=== PATIENT | male | born 1970 | race African-American/Black ===

== ENCOUNTER 2016-11-06 11:54 | Inpatient (IN) | payer OTHER ==
[~2016-11-06] VITALS: Ht 190.5 cm; Wt 93.0 kg
[2016-11-06 11:55] VITALS: BP 129/86; PULSE 92; RESP 17; TEMP 98.1; O2SAT 92
[2016-11-06 12:00] VITALS: BP 130/96; PULSE 98; RESP 16; TEMP 98; O2SAT 94
[2016-11-06] MEDS ORDERED: PROPOFOL 200 MG/20 ML AMP IV ONE (12:00)
[2016-11-06] MEDS ORDERED: ONDANSETRON HCL 4 MG/2 ML VIAL IV PUSH ONE (12:00)
[2016-11-06 12:15] VITALS: O2SAT 97
[2016-11-06] MEDS ORDERED: MORPHINE SULFATE 4 MG/ML INJ IV PUSH ONE (12:30)
[2016-11-06] MEDS ORDERED: SODIUM CHLORIDE 0.9% FLUSH 5 ML FLUSH IVF PRN (12:30)
[2016-11-06] MEDS ORDERED: GENTAMICIN 80 MG PREMIX 100 ML IV ONE (12:30)
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
[2016-11-06 12:36] LABS: AUTOMATED NEUTROPHIL # 4.5 TH/MM3 (1.8-7.7); BASOPHIL % 0.2 % (0.0-2.0); EOSINOPHIL # 0.1 TH/MM3 (0-0.4); EOSINOPHIL % 1.8 % (0.0-4.0); HEMATOCRIT 46.1 % (39.0-51.0); HEMO FLAGS DIFF FINAL; LYMPH % 23.3 % (9.0-44.0); LYMPHOCYTE # 1.8 TH/MM3 (1.0-4.8); MEAN CELL VOLUME 94.4 FL (80.0-100.0); MEAN CORPUSCULAR HEMOGLOBIN 31.7 PG (27.0-34.0); MEAN CORPUSCULAR HGB CONC 33.6 % (32.0-36.0); MONO % 15.8 % (0.0-8.0); NEUT % 58.9 % (16.0-70.0); PLATELET COUNT 262 TH/MM3 (150-450); RED BLOOD COUNT 4.88 MIL/MM3 (4.50-5.90); RED CELL DISTRIBUTION WIDTH 13.9 % (11.6-17.2); WHITE BLOOD COUNT 7.6 TH/MM3 (4.0-11.0)
[2016-11-06] MEDS ORDERED: TEMAZEPAM 15 MG CAP PO PRN (12:45)
[2016-11-06] MEDS ORDERED: ONDANSETRON HCL 4 MG/2 ML VIAL IVP PRN (12:45)
[2016-11-06] MEDS ORDERED: NALOXONE HCL 0.4 MG/ML AMP IV PRN (12:45)
[2016-11-06] MEDS ORDERED: SODIUM CHLORIDE 0.9% FLUSH 5 ML FLUSH FLUSH PRN (12:45)
[2016-11-06 12:47] LABS: APTT (PATIENT) 28.6 SEC (24.3-30.1); INTERNATIONAL NORMALIZED RATIO 0.9 RATIO; PROTHROMBIN TIME - PATIENT 9.8 SEC (9.8-11.6)
[2016-11-06 12:56] LABS: BICARBONATE 26.6 MEQ/L (21.0-32.0)
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
--- NOTE | 2016-11-06 13:08 | RADRPT ---
EXAM DATE/TIME: 11/06/2016 12:52 [facility] COMPARISON: No previous studies available for comparison. INDICATIONS : Left Hand pain after getting hit with chainsaw, wound is on back of hand in the 2nd-4th digit metacar pal area. MEDICAL HISTORY : Left Wrist Fractures. SURGICAL HISTORY : None. ENCOUNTER: Initial ACUITY: 1 day PAIN SCORE: 10/10 LOCATION: Left Hand. FINDINGS: Three view examination of the left hand demonstrates no soft tissue swelling, dislocation, or fractur e. The carpal bones appear intact. The interphalangeal and metacarpophalangeal joints are intact. Bony mineralization is normal. CONCLUSION: Unremarkable examination of the left hand. Soft tissue wound dorsally but no foreign body identified Lorenzo Sena MD on November 06, 2016 at 13:06 Board Certified Radiologist. This report was verified electronically.
--- NOTE | 2016-11-06 13:12 | RADRPT ---
EXAM DATE/TIME: 11/06/2016 12:54 [facility] COMPARISON: WRIST LEFT COMPLETE ([id number]), September 04, 2013, 23:12. INDICATIONS : Left Wrist pain after getting hit with chainsaw, wound is on back of hand in the 2nd-4th digit metaca rpal area. MEDICAL HISTORY : Left Wrist Fractures. SURGICAL HISTORY : None. ENCOUNTER: Initial ACUITY: 1 day PAIN SCORE: 10/10 LOCATION: Left Wrist. FINDINGS: Three view examination of the left wrist demonstrates no soft tissue swelling, dislocation, or fractu re. The carpal bones are in normal alignment. The joint spaces are maintained. Bony mineralization is normal. CONCLUSION: Unremarkable examination of the left wrist. Lorenzo Sena MD on November 06, 2016 at 13:11 Board Certified Radiologist. This report was verified electronically.
[2016-11-06] MEDS ORDERED: TETANUS/DIPHTHERIA TOXOID ADULT 0.5 ML VIAL IM ONE (13:15)
[2016-11-06] MEDS: SODIUM CHLOR 0.45% 1000 ML INJ 1,000 ML IV SCH ×2 (14:08→23:35)
[2016-11-06] MEDS: MORPHINE SULFATE 4 MG/ML INJ IV PUSH PRN ×2 (14:39→20:03)
[2016-11-06 14:50] VITALS: BP 158/98; PULSE 97; RESP 17; TEMP 98.6; O2SAT 96
[2016-11-06] MEDS ORDERED: ceFAZolin INJ 1,000 MG VIAL ONE (16:19)
[2016-11-06] MEDS ORDERED: LIDOCAINE HCL 2% 50 ML VIAL ONE (16:19)
[2016-11-06] MEDS ORDERED: BUPIVACAINE HCL PF 0.5% 30 ML VIAL ONE (16:19)
[2016-11-06] MEDS ORDERED: NEOMYCIN/POLYMYXIN 1 ML G.U. IRRIGANT IR ONE ×2 (16:26→16:31)
--- NOTE | 2016-11-06 17:34 | HHI.HP ---
[facility] Service [facility] Primary Care Physician No Primary Care Physician Admission Diagnosis complicated left hand laceration, chainsaw injury Diagnoses: Chief Complaint: Severe left hand trauma from a chainsaw Travel History International Travel<30 Days: No Contact w/Intl Traveler <30 Da: No Traveled to Known Affected Are: No History of Present Illness Patient seen around 1300 46-year-old male with no significant medical history except for asthma presented to the emergency room after he sustained an injury on his left hand from a chainsaw. The patient reports that he was working and his coworker was using the chainsaw. As the coworker turned around, they did not see each other until the chainsaw hit his left hand on the dorsal side. He immediately noticed significant blood in the deep wound. Hand surgeon was consulted in the emergency room. Patient will be taken to the OR today. Currently he reports that he is having significant pain. He cannot extend the index finger. Otherwise all of the fingers have good color and sensation is intact. Morphine that he received earlier is wearing off. Date of last tetanus shot is unknown. Review of Systems Constitutional: DENIES: Fever, Chills Endocrine: DENIES: Polyuria Eyes: DENIES: Blurred vision Ears, nose, mouth, throat: DENIES: Oral lesions, Hoarseness Respiratory: DENIES: Cough, Shortness of breath Cardiovascular: DENIES: Chest pain, Palpitations Gastrointestinal: DENIES: Nausea, Vomiting Musculoskeletal: COMPLAINS OF: Joint pain Neurologic: COMPLAINS OF: Localized weakness Psychiatric: DENIES: Mood changes Past Family Social History Past Medical History Asthma. Past Surgical History No previous surgery. Multiple previous broken bones treated conservatively Reported Medications Last Impressions Wrist X-Ray 11/06/16 0000 Signed Impressions: Service Date/Time: Sunday, November 06, 2016 12:54 - CONCLUSION: Unremarkable examination of the left wrist. Lorenzo Sena MD Hand X-Ray 11/06/16 0000 Signed Impressions: Service Date/Time: Sunday, November 06, 2016 12:52 - CONCLUSION: Unremarkable examination of the left hand. Soft tissue wound dorsally but no foreign body identified Lorenzo Sena MD Chest X-Ray 11/06/16 0000 Signed Impressions: Service Date/Time: Sunday, November 06, 2016 12:49 - CONCLUSION: Normal examination. Lorenzo Sena MD Allergies: Coded Allergies: Shrimp (Verified Allergy, Severe, 11/06/16) swelling Family History Both parents with history of hypertension. Social History Patient admits to smoking a quarter pack of cigarettes per day. He drinks about 4 beers daily. He admits to using cocaine yesterday. Physical Exam Vital Signs Vital Signs Date Time Temp Pulse Resp B/P Pulse Ox O2 Delivery O2 Flow Rate FiO2 11/06/16 14:50 98.6 97 17 158/98 96 Nasal Cannula 2 11/06/16 12:15 97 Room Air 11/06/16 12:00 98.0 98 16 130/96 94 11/06/16 11:55 98.1 92 17 129/86 92 Physical Exam GENERAL: This is a well-nourished, well-developed patient, in no apparent distress. SKIN: Cool and dry. Per ER physician documentation "Deep/vertical laceration to the dorsal aspect of the patient's left hand extending over the dorsal aspect of his left wrist. There are exposed tendons, some of which are lacerated as well as an exposed left distal radius. No bony fragments are noted in wound. There are no obvious contaminants in wound. No active bleeding" HEAD: Atraumatic. Normocephalic. No temporal or scalp tenderness. EYES: Pupils equal round and reactive. Extraocular motions intact. No scleral icterus. No injection or drainage. ENT: Nose without bleeding, purulent drainage or septal hematoma. Throat without erythema, tonsillar hypertrophy or exudate. Uvula midline. Airway patent. NECK: Trachea midline. No JVD or lymphadenopathy. Supple, nontender, no meningeal signs. CARDIOVASCULAR: Regular rate and rhythm without murmurs, gallops, or rubs. RESPIRATORY: Clear to auscultation. Breath sounds equal bilaterally. No wheezes , rales, or rhonchi. GASTROINTESTINAL: Abdomen soft, non-tender, nondistended. No hepato-splenomegaly , or palpable masses. No guarding. MUSCULOSKELETAL: Left Hand is wrapped with a clean dressing. Did not undo the dressing for patient comfort. Unable to extend left index finger. Other fingers with ROM but limited due to pain. NEUROLOGICAL: Awake and alert. Cranial nerves II through XII intact. Motor and sensory grossly within normal limits. Five out of 5 muscle strength in all muscle groups. Normal speech. Laboratory Laboratory Tests Test 11/06/16 12:15 White Blood Count 7.6 Red Blood Count 4.88 Hemoglobin 15.5 Hematocrit 46.1 Mean Corpuscular Volume 94.4 Mean Corpuscular Hemoglobin 31.7 Mean Corpuscular Hemoglobin 33.6 Concent Red Cell Distribution Width 13.9 Platelet Count 262 Mean Platelet Volume 7.7 Neutrophils (%) (Auto) 58.9 Lymphocytes (%) (Auto) 23.3 Monocytes (%) (Auto) 15.8 Eosinophils (%) (Auto) 1.8 Basophils (%) (Auto) 0.2 Neutrophils # (Auto) 4.5 Lymphocytes # (Auto) 1.8 Monocytes # (Auto) 1.2 Eosinophils # (Auto) 0.1 Basophils # (Auto) 0.0 CBC Comment DIFF FINAL Differential Comment Prothrombin Time 9.8 Prothromb Time International 0.9 Ratio Activated Partial 28.6 Thromboplast Time Sodium Level 143 Potassium Level 4.0 Chloride Level 106 Carbon Dioxide Level 26.6 Anion Gap 10 Blood Urea Nitrogen 9 Creatinine 1.04 Estimat Glomerular Filtration 93 Rate Random Glucose 84 Calcium Level 8.2 Blood Type A POSITIVE Antibody Screen NEGATIVE Blood Bank Comment Result Diagram: 11/06/16 1215 11/06/16 1215 Imaging Last Impressions Wrist X-Ray 11/06/16 0000 Signed Impressions: Service Date/Time: Sunday, November 06, 2016 12:54 - CONCLUSION: Unremarkable examination of the left wrist. Lorenzo Sena MD Hand X-Ray 11/06/16 0000 Signed Impressions: Service Date/Time: Sunday, November 06, 2016 12:52 - CONCLUSION: Unremarkable examination of the left hand. Soft tissue wound dorsally but no foreign body identified Lorenzo Sena MD Chest X-Ray 11/06/16 0000 Signed Impressions: Service Date/Time: Sunday, November 06, 2016 12:49 - CONCLUSION: Normal examination. Lorenzo Sena MD Assessment and Plan Problem List: (1) Laceration of hand, left, complicated ICD Code: S61.412A Status: Acute (2) Contact with chainsaw as cause of accidental injury ICD Code: W29.3XXA Status: Acute (3) Tobacco abuse ICD Code: Z72.0 Status: Acute (4) Alcohol abuse ICD Code: F10.10 Status: Acute Assessment and Plan 46-year-old male with: Deep left hand laceration due to accidental injury with a chainsaw: X-ray reviewed by me and concur with radiologist. No foreign body identified. - Hand surgery is aware and planning to take the patient to the OR for repair today. Patient received Ancef and gentamicin in the ED - Patient already given tetanus shot - Pain control with morphine Alcohol abuse: Patient counseled. He denies ever having issues with withdrawals. - [place] protocol - Rally pack Tobacco abuse: The patient has been counseled on the detrimental effect of tobacco on his health. He is advised to quit. GI prophylaxis: Stool softener PRN constipation. DVT PPx: SCDs Discussed Condition With Dr. Hernandez Physician Certification 2 Midnight Certification Type: Admission for Inpatient Services Order for Inpatient Services The services are ordered in accordance with Medicare regulations or non- Medicare payer requirements, as applicable. In the case of services not specified as inpatient-only, they are appropriately provided as inpatient services in accordance with the 2-midnight benchmark. Estimated LOS (days): 3 days is the estimated time the patient will need to remain in the hospital, assuming treatment plan goals are met and no additional complications. Post-Hospital Plan: Home Problem Qualifiers (1) Laceration of hand, left, complicated: Qualified Code: S61.412A - Laceration of hand, left, complicated, initial encounter Darvin Seymour MD Nov 06, 2016 17:34
[2016-11-06] MEDS ORDERED: *MEPERIDINE 25 MG INJ VIAL PERIprocedural Use ONLY ONE (17:51)
[2016-11-06] MEDS ORDERED: *LABETALOL HCL 100 MG/20 ML VIAL PERIprocedural Use ONLY ONE (17:57)
[2016-11-06] MEDS ORDERED: FLUMAZENIL 0.5 MG/5 ML VIAL IV PUSH PRN (18:00)
[2016-11-06] MEDS ORDERED: LORazepam 2 MG/ML VIAL IV PUSH PRN ×4 (18:00)
[2016-11-06] MEDS ORDERED: LORazepam 2 MG TAB PO PRN (18:00)
[2016-11-06] MEDS ORDERED: LORazepam 1 MG TAB PO PRN (18:00)
[2016-11-06] MEDS ORDERED: fentaNYL CITRATE 250 MCG/5 ML AMP ONE (18:03)
[2016-11-06] MEDS: THIAMINE HCL 100 MG TAB PO SCH (18:04)
[2016-11-06] MEDS ORDERED: *ENALAPRILAT 1.25 MG/ML VIAL PERIprocedural Use ONLY ONE (18:17)
[2016-11-06] MEDS ORDERED: Gentamicin Consult Pharmacy 1 EA OTHER PRN (18:30)
[2016-11-06] MEDS ORDERED: ONDANSETRON HCL 4 MG/2 ML VIAL IV PUSH PRN (18:30)
[2016-11-06] MEDS ORDERED: DO NOT ADM ANY ANTICOAGULANT DRUGS XX PRN (19:00)
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
[2016-11-06 19:30] VITALS: BP 137/90; PULSE 92; RESP 18; TEMP 97.6; O2SAT 97
[2016-11-06] MEDS: MULTIVITAMIN TAB PO SCH (19:54)
[2016-11-06] MEDS: SODIUM CHLORIDE 0.9% FLUSH 5 ML FLUSH FLUSH SCH (19:55)
[2016-11-06] MEDS ORDERED: MEPERIDINE HCL 50 MG/ML VIAL IM PRN (20:00)
[2016-11-06] MEDS: SODIUM CHLORIDE 0.9% IV SCH (20:26)
[2016-11-06] MEDS: GENTAMICIN IV SCH (20:26)
[2016-11-06] MEDS: ACETAMINOPHEN/HYDROcodone 325 MG/7.5 MG TAB PO PRN (23:11)
[2016-11-07] VITALS: BP_SYST 124; BP_SYST 137; BP_DIAS 83; BP_DIAS 90; PULSE 92; PULSE 97; RESP 18; TEMP 97.6; TEMP 99.5; O2SAT 97
[2016-11-07 03:50] VITALS: BP 145/95; PULSE 84; RESP 19; TEMP 98.9; O2SAT 98
[2016-11-07] MEDS: MORPHINE SULFATE 4 MG/ML INJ IV PUSH PRN ×3 (04:02→16:52)
[2016-11-07 06:03] LABS: AUTOMATED NEUTROPHIL # 5.5 TH/MM3 (1.8-7.7); BASOPHIL % 0.3 % (0.0-2.0); EOSINOPHIL % 0.6 % (0.0-4.0); HEMO FLAGS DIFF FINAL; LYMPH % 18.8 % (9.0-44.0); LYMPHOCYTE # 1.5 TH/MM3 (1.0-4.8); MEAN CELL VOLUME 94.3 FL (80.0-100.0); MEAN CORPUSCULAR HEMOGLOBIN 31.6 PG (27.0-34.0); MEAN CORPUSCULAR HGB CONC 33.5 % (32.0-36.0); MONO % 12.4 % (0.0-8.0); NEUT % 67.9 % (16.0-70.0); PLATELET COUNT 206 TH/MM3 (150-450); RED BLOOD COUNT 4.56 MIL/MM3 (4.50-5.90); RED CELL DISTRIBUTION WIDTH 13.8 % (11.6-17.2); WHITE BLOOD COUNT 8.1 TH/MM3 (4.0-11.0)
[2016-11-07 06:34] LABS: RANDOM GENTAMICIN 1.5 MCG/ML
[2016-11-07] MEDS: THIAMINE HCL 100 MG TAB PO SCH (07:45)
[2016-11-07] MEDS: SODIUM CHLORIDE 0.9% FLUSH 5 ML FLUSH FLUSH SCH ×2 (07:45→21:16)
[2016-11-07] MEDS: MULTIVITAMIN TAB PO SCH (07:45)
[2016-11-07] MEDS: ACETAMINOPHEN/HYDROcodone 325 MG/7.5 MG TAB PO PRN ×3 (07:46→21:15)
[2016-11-07] MEDS: MAGNESIUM HYDROXIDE SUSP 30 ML CUP PO PRN (07:46)
[2016-11-07 08:00] VITALS: BP 128/81; PULSE 82; RESP 18; TEMP 96.6; O2SAT 95
[2016-11-07] MEDS: SODIUM CHLOR 0.45% 1000 ML INJ 1,000 ML IV SCH (11:06)
[2016-11-07 12:00] VITALS: BP 134/95; PULSE 79; RESP 18; TEMP 99.3; O2SAT 96
--- NOTE | 2016-11-07 13:34 | HHI.PR ---
Subjective Remarks Patient seen in follow up for deep wound after traumatic injury to left hand from a chain saw. POD#1. Patient reports that he is feeling ok. Pain is controlled. He can now extend the index finger. Objective Vitals Vital Signs Date Time Temp Pulse Resp B/P Pulse Ox O2 Delivery O2 Flow Rate FiO2 11/07/16 08:00 96.6 82 18 128/81 95 11/07/16 03:50 98.9 84 19 145/95 98 11/07/16 00:00 99.5 97 18 124/83 97 11/06/16 19:30 97.6 92 18 137/90 97 11/06/16 19:00 98.0 94 14 140/95 97 Nasal Cannula 3 11/06/16 18:45 91 14 140/98 97 Nasal Cannula 3 11/06/16 18:32 95 14 156/100 98 Nasal Cannula 4 11/06/16 18:30 96 14 161/110 98 Nasal Cannula 4 11/06/16 18:15 88 14 183/121 100 Nasal Cannula 4 11/06/16 18:00 88 14 191/130 98 Nasal Cannula 4 11/06/16 17:49 98.0 111 14 200/132 94 Nasal Cannula 4 11/06/16 14:50 98.6 97 17 158/98 96 Nasal Cannula 2 I/O 11/06/16 11/06/16 11/06/16 11/07/16 11/07/16 11/07/16 07:00 15:00 23:00 07:00 15:00 23:00 Intake Total 1240 ml 284 ml 510 ml Output Total 500 ml 600 ml Balance 740 ml 284 ml -90 ml Intake Oral 240 ml 240 ml IV Total 284 ml 270 ml Other 1000 ml Output Urine Total 450 ml 600 ml Estimated Blood Loss 50 ml # Bowel Movements 0 0 Result Diagram: 11/07/16 0535 11/07/16 0535 Imaging Last Impressions Wrist X-Ray 11/06/16 0000 Signed Impressions: Service Date/Time: Sunday, November 06, 2016 12:54 - CONCLUSION: Unremarkable examination of the left wrist. Lorenzo Sena MD Hand X-Ray 11/06/16 0000 Signed Impressions: Service Date/Time: Sunday, November 06, 2016 12:52 - CONCLUSION: Unremarkable examination of the left hand. Soft tissue wound dorsally but no foreign body identified Lorenzo Sena MD Chest X-Ray 11/06/16 0000 Signed Impressions: Service Date/Time: Sunday, November 06, 2016 12:49 - CONCLUSION: Normal examination. Lorenzo Sena MD Objective Remarks GENERAL: This is a well-nourished, well-developed patient, in no apparent distress. CARDIOVASCULAR: Regular rate and rhythm without murmurs, gallops, or rubs. RESPIRATORY: Clear to auscultation. Breath sounds equal bilaterally. No wheezes , rales, or rhonchi. GASTROINTESTINAL: Abdomen soft, non-tender, nondistended. Normal active bowel sounds MUSCULOSKELETAL: Left hand/arm in post op splint. Patient is able to move all fingers but limited due to pain. Sensation is intact. NEURO: Alert & Oriented x4 to person, place, time, situation. Moves all ext x4 A/P Problem List: (1) Laceration of hand, left, complicated ICD Code: S61.412A Status: Acute (2) Contact with chainsaw as cause of accidental injury ICD Code: W29.3XXA Status: Acute (3) Tobacco abuse ICD Code: Z72.0 Status: Acute (4) Alcohol abuse ICD Code: F10.10 Status: Acute Assessment and Plan 46-year-old male with: Deep left hand laceration due to accidental injury with a chainsaw: X-ray reviewed by me and concur with radiologist. No foreign body identified. - POD #1 debridement and repair by Hand surgery - Patient already given tetanus shot - On Rocephin and Gentamicin per hand surgery. Wound cultures pending. - Pain control with morphine Alcohol abuse: Patient counseled. He denies ever having issues with withdrawals. - [place] protocol - Rally pack Tobacco abuse: The patient has been counseled on the detrimental effect of tobacco on his health. He is advised to quit. GI prophylaxis: Stool softener PRN constipation. DVT PPx: SCDs Problem Qualifiers (1) Laceration of hand, left, complicated: Qualified Code: S61.412A - Laceration of hand, left, complicated, initial encounter Darvin Seymour MD Nov 07, 2016 13:34
[2016-11-07 16:00] VITALS: BP 156/98; PULSE 54; RESP 18; TEMP 97.9; O2SAT 98
--- NOTE | 2016-11-07 19:40 | EKG ---
Date Performed: 11/06/2016 Time Performed: 13:11:15 PTAGE: 46 years EKG: Sinus rhythm WITH OCCASIONAL VENTRICULAR PREMATURE COMPLEXES BORDERLINE ECG PREVIOUS TRACING : 10/05/2016 17.59 DOCTOR: Lakhwinder Cesar Interpretating Date/Time 11/07/2016 19:35:25
[2016-11-07 20:00] VITALS: BP 158/106; PULSE 79; RESP 16; TEMP 96.5; O2SAT 98
[2016-11-07] MEDS: SODIUM CHLORIDE 0.9% IV SCH (21:16)
[2016-11-07] MEDS: GENTAMICIN IV SCH (21:16)
[2016-11-08 00:15] VITALS: BP 174/108; PULSE 72; RESP 16; TEMP 98.6; O2SAT 95
[2016-11-08] MEDS: SODIUM CHLOR 0.45% 1000 ML INJ 1,000 ML IV SCH ×2 (00:31→09:25)
[2016-11-08] MEDS: MORPHINE SULFATE 4 MG/ML INJ IV PUSH PRN ×2 (00:31→04:59)
[2016-11-08] MEDS: ACETAMINOPHEN/HYDROcodone 325 MG/7.5 MG TAB PO PRN ×2 (02:54→09:22)
[2016-11-08 02:56] VITALS: BP 139/89; PULSE 72; RESP 18; TEMP 98.4; O2SAT 99
[2016-11-08 08:00] VITALS: BP 135/90; PULSE 73; RESP 18; TEMP 97.5; O2SAT 98
[2016-11-08] MEDS ORDERED: NORC5TAB PO (08:57)
[2016-11-08] MEDS ORDERED: CEPH-460 PO (08:57)
--- NOTE | 2016-11-08 09:02 | PD.PN.STU ---
Subjective Remarks 46 yo M POD # 2 s/p repair of complex L hand laceration after chainsaw injury, doing well overall. Reports poor sleep overnight, thinks he may have bumped his L hand while sleeping. His pain is under adequate control. Some cough in the morning with mucous, but no SOB or increased work of breathing. He is eating well, with no N/V. He has not had a bowel movement in the past day. Objective Vitals Vital Signs Date Time Temp Pulse Resp B/P Pulse Ox O2 Delivery O2 Flow Rate FiO2 11/08/16 08:00 97.5 73 18 135/90 98 11/08/16 07:04 Room Air 11/08/16 04:00 Room Air 11/08/16 02:56 98.4 72 18 139/89 99 11/08/16 00:15 98.6 72 16 174/108 95 11/08/16 00:00 Room Air 11/07/16 20:00 96.5 79 16 158/106 98 11/07/16 20:00 Room Air 11/07/16 16:00 97.9 54 18 156/98 98 11/07/16 12:00 99.3 79 18 134/95 96 I/O 11/07/16 11/07/16 11/07/16 11/08/16 11/08/16 11/08/16 07:00 15:00 23:00 07:00 15:00 23:00 Intake Total 284 ml 510 ml 1200 ml 644 ml Output Total 600 ml 800 ml 500 ml Balance 284 ml -90 ml 400 ml 144 ml Intake Oral 240 ml 1200 ml 240 ml IV Total 284 ml 270 ml 404 ml Output Urine Total 600 ml 800 ml 500 ml # Voids 2 # Bowel Movements 0 0 0 Result Diagram: 11/07/16 0535 11/07/16 0535 Imaging Last 72 hours Impressions Wrist X-Ray 11/06/16 0000 Signed Impressions: Service Date/Time: Sunday, November 06, 2016 12:54 - CONCLUSION: Unremarkable examination of the left wrist. Lorenzo Sena MD Hand X-Ray 11/06/16 0000 Signed Impressions: Service Date/Time: Sunday, November 06, 2016 12:52 - CONCLUSION: Unremarkable examination of the left hand. Soft tissue wound dorsally but no foreign body identified Lorenzo Sena MD Chest X-Ray 11/06/16 0000 Signed Impressions: Service Date/Time: Sunday, November 06, 2016 12:49 - CONCLUSION: Normal examination. Lorenzo Sena MD Objective Remarks GENERAL: Well-nourished, well-developed patient, sitting upright comfortably in bed SKIN: Warm and dry. HEAD: Normocephalic. EYES: No scleral icterus. No injection or drainage. CARDIOVASCULAR: Regular rate and rhythm without murmurs, gallops, or rubs. RESPIRATORY: Breath sounds equal bilaterally, minimal expiratory wheeze, improved from yesterday GASTROINTESTINAL: Abdomen soft, non-tender, nondistended. EXTREMITIES: L hand w/dressing in place to forearm, able to flex and extend fingers and thumb all of which are warm and well perfused, w/ good capillary refill NEUROLOGICAL: Awake, alert, and oriented x 3. Non-focal. Procedures 11/06: L hand repair/reconstruction of complex L hand laceration. Medications and IVs Administered Medications Medications (Trade) Dose Ordered Sig/Chicho Route PRN Reason Start Time Stop Time Status Last Admin Dose Admin Sodium Chloride (2 NS 1000 ml Inj) 1,000 ml @ 75 mls/hr [id number] IV 11/06/16 12:38 11/06/16 14:08 IV Flush (NS Flush) 2 ml BID FLUSH 11/06/16 21:00 11/07/16 21:16 Ondansetron HCl (Zofran Inj) 4 mg Q6H PRN IVP NAUSEA OR VOMITING 11/06/16 12:45 11/06/16 14:39 Magnesium Hydroxide (Milk Of Magnesia Liq) 30 ml Q12H PRN PO CONSTIPATION 11/06/16 12:45 11/07/16 07:46 Morphine Sulfate (Morphine Inj) 4 mg Q3H PRN IV PUSH PAIN GREATER THAN 5 11/06/16 12:45 11/08/16 04:59 Multivitamins (Theragran) 1 tab DAILY PO 11/06/16 20:00 11/07/16 07:45 Thiamine HCl 100 mg 100 mg DAILY PO 11/06/16 18:04 11/07/16 07:45 Cefazolin Sodium/ Sodium Chloride (Ancef Inj/NS Inj) 100 ml @ 200 mls/hr Q6HR IV 11/07/16 00:00 11/09/16 23:59 11/08/16 04:59 Acetaminophen/ Hydrocodone Bitart 1 tab 1 tab Q6H PRN PO PAIN 1 TO 10 AND/OR AGITATION 11/06/16 18:30 11/08/16 02:54 Gentamicin Sulfate/Sodium Chloride (Gentamicin Inj/ NS Inj) 111.25 ml @ 100 mls/ hr Q24H IV 11/06/16 21:00 11/07/16 21:16 A/P Assessment and Plan 46 yo M POD #2 s/p repair of complex L hand laceration doing well overall - Pain control: [place] Q6h for pain 1-5, morphine 4 mg Q3h for pain > 5 - ID: received gentamicin and ancef perioperatively - Constipation: Milk of Mag available Q12h PRN - Ppx: Zofran PRN for N/V, SCD's - EtOH use: CIWA protocol Waleska Mercado M3 Nov 08, 2016 09:02
[2016-11-08] MEDS ORDERED: PERI8.6T PO (09:16)
--- NOTE | 2016-11-08 09:17 | HHI.DS ---
Discharge Summary Admission Date Nov 06, 2016 at 12:42 Discharge Date: Nov 08, 2016 Admitting Diagnosis complicated left hand laceration, chainsaw injury (1) Laceration of hand, left, complicated ICD Code: S61.412A (2) Contact with chainsaw as cause of accidental injury ICD Code: W29.3XXA (3) Tobacco abuse ICD Code: Z72.0 (4) Alcohol abuse ICD Code: F10.10 Procedures Left hand laceration and tendon repair. Brief History - From Admission 46-year-old male with no significant medical history except for asthma presented to the emergency room after he sustained an injury on his left hand from a chainsaw. The patient reports that he was working and his coworker was using the chainsaw. As the coworker turned around, they did not see each other until the chainsaw hit his left hand on the dorsal side. He immediately noticed significant blood in the deep wound. Hand surgeon was consulted in the emergency room. Patient will be taken to the OR today. Currently he reports that he is having significant pain. He cannot extend the index finger. Otherwise all of the fingers have good color and sensation is intact. Morphine that he received earlier is wearing off. Date of last tetanus shot is unknown. CBC/BMP: 11/07/16 0535 11/07/16 0535 Significant Findings Laboratory Tests Test 11/06/16 11/07/16 12:15 05:35 Monocytes (%) (Auto) 15.8 % 12.4 % (0.0-8.0) (0.0-8.0) Monocytes # (Auto) 1.2 TH/MM3 1.0 TH/MM3 (0-0.9) (0-0.9) Calcium Level 8.2 MG/DL 8.0 MG/DL (8.5-10.1) (8.5-10.1) Estimat Glomerular Filtration 77 ML/MIN (>89) Rate Random Glucose 119 MG/DL (74-106) Imaging Last Impressions Wrist X-Ray 11/06/16 0000 Signed Impressions: Service Date/Time: Sunday, November 06, 2016 12:54 - CONCLUSION: Unremarkable examination of the left wrist. Lorenzo Sena MD Hand X-Ray 11/06/16 0000 Signed Impressions: Service Date/Time: Sunday, November 06, 2016 12:52 - CONCLUSION: Unremarkable examination of the left hand. Soft tissue wound dorsally but no foreign body identified Lorenzo Sena MD Chest X-Ray 11/06/16 0000 Signed Impressions: Service Date/Time: Sunday, November 06, 2016 12:49 - CONCLUSION: Normal examination. Lorenzo Sena MD PE at Discharge GENERAL: This is a well-nourished, well-developed patient, in no apparent distress. CARDIOVASCULAR: Regular rate and rhythm without murmurs, gallops, or rubs. RESPIRATORY: Clear to auscultation. Breath sounds equal bilaterally. No wheezes , rales, or rhonchi. GASTROINTESTINAL: Abdomen soft, non-tender, nondistended. Normal active bowel sounds MUSCULOSKELETAL: Left hand/arm in post op splint. Patient is able to move all fingers but limited due to pain. Sensation is intact. NEURO: Alert & Oriented x4 to person, place, time, situation. Moves all ext x4 Pt update on day of discharge 46 yo M POD # 2 s/p repair of complex L hand laceration after chainsaw injury, doing well overall. Reports poor sleep overnight, thinks he may have bumped his L hand while sleeping. Pain is controlled. Hospital Course 46-year-old male admitted for deep laceration of the left hand due to axonal Mac with a chainsaw. Evaluation and treatment course detailed below: Deep left hand laceration due to accidental injury with a chainsaw: X-ray reviewed by me and concur with radiologist. No foreign body identified. -Patient underwent debridement and repair of the tendons and laceration of the left hand. - Patient already given tetanus shot - On Rocephin and Gentamicin perioperatively. He is discharged on Keflex per hand surgery. The patient is to follow-up Monday in the office. Alcohol abuse: Patient counseled. He denies ever having issues with withdrawals. - [facility] protocol - Rally pack Tobacco abuse: The patient has been counseled on the detrimental effect of tobacco on his health. He is advised to quit. Pt Condition on Discharge: Good Discharge Disposition: Discharge Home Discharge Time: <= 30 minutes Discharge Instructions DIET: Follow Instructions for: As Tolerated, No Restrictions Activities you can perform: See Additionl Instruction Other Activity Instructions: Per Hand surgery instructions. Follow up Referrals: Hand Surgery with Toby Yeboah III, MD New Medications: Cephalexin (Keflex) 500 Mg Cap 500 MG PO Q6H xxxx #28 Ref 0 CAP Hydrocodone-Acetaminophen (Dennis) 5-325 mg Tab 1-2 TAB PO Q6H PRN PAIN #20 Ref 0 TAB Sennosides-Docusate Sodium (Zamzam-Colace) 8.6-50 Mg Tab 1 TAB PO BID Constipation #20 Ref 0 TAB Darvin Seymour MD Nov 08, 2016 09:17
[2016-11-08] MEDS: THIAMINE HCL 100 MG TAB PO SCH (09:22)
[2016-11-08] MEDS: MAGNESIUM HYDROXIDE SUSP 30 ML CUP PO PRN (09:22)
[2016-11-08] MEDS: SODIUM CHLORIDE 0.9% FLUSH 5 ML FLUSH FLUSH SCH (09:22)
[2016-11-08] MEDS: MULTIVITAMIN TAB PO SCH (09:22)
--- NOTE | 2016-11-08 09:26 | HHI.PR ---
Subjective Remarks The patient has no complaints this morning Objective Vital Signs Date Time Temp Pulse Resp B/P Pulse Ox O2 Delivery O2 Flow Rate FiO2 11/08/16 08:00 97.5 73 18 135/90 98 11/08/16 07:04 Room Air 11/08/16 04:00 Room Air 11/08/16 02:56 98.4 72 18 139/89 99 11/08/16 00:15 98.6 72 16 174/108 95 11/08/16 00:00 Room Air 11/07/16 20:00 96.5 79 16 158/106 98 11/07/16 20:00 Room Air 11/07/16 16:00 97.9 54 18 156/98 98 11/07/16 12:00 99.3 79 18 134/95 96 I/O 11/07/16 11/07/16 11/07/16 11/08/16 11/08/16 11/08/16 07:00 15:00 23:00 07:00 15:00 23:00 Intake Total 284 ml 510 ml 1200 ml 644 ml Output Total 600 ml 800 ml 500 ml Balance 284 ml -90 ml 400 ml 144 ml Intake Oral 240 ml 1200 ml 240 ml IV Total 284 ml 270 ml 404 ml Output Urine Total 600 ml 800 ml 500 ml # Voids 2 # Bowel Movements 0 0 0 Result Diagram: 11/07/16 0535 11/07/16 0535 Other Results All of his fingers on the left are soft pink and warm and he is able to wiggle them in the splints. They are all sensate. The splint is intact and there is no sign of any bleeding. Assessment and Plan Problem List: (1) Laceration of hand, left, complicated Status: Acute (2) Contact with chainsaw as cause of accidental injury Status: Acute (3) Extensor tendon laceration of hand with open wound Status: Acute Plan: The patient is okay to be discharged home from my standpoint. I wrote prescriptions for pain medicine and antibiotics and I will see him back in my office next Monday. He needs to call [phone] for an appointment time He is to keep the left hand elevated and the splint on and intact at all times not remove it Problem Qualifiers (1) Laceration of hand, left, complicated: Qualified Code: S61.412A - Laceration of hand, left, complicated, initial encounter Toby Yeboah III, MD Nov 08, 2016 09:26
--- NOTE | 2016-11-09 18:23 | MP ---
cc: JOSIE YEBOAH MD DATE OF SURGERY 11/06/16 SURGEON Annia Yeboah III, MD PREOPERATIVE DIAGNOSIS Chainsaw injury to the left hand and wrist. PROCEDURES 1. Exploration of penetrating injury left hand and wrist. 2. Repair of the left extensor carpi radialis longus tendon. 3. Repair of left extensor indicis propria tendon. 4. Repair of left second extensor digitorum communis to the index finger 5. Repair left extensor digitorum communis tendon to the middle finger 6. Debridement of open fracture of left capitate 7. Repair of left fifth finger wound, simple SURGEON Annia Yeboah III, MD TOURNIQUET TIME 43 minutes at 200 mmHg. PROCEDURE IN DETAIL The patient was brought to the operating room and placed supine on the operating table. after the correct site and side of surgery were verified by members of each team in the room multiple times including the patient and myself and after adequate preoperative markings and preoperative written consent were verified by everyone and after adequate preoperative time-out performed with satisfaction and after adequate general anesthesia had been achieved, the left upper extremity was prepped and draped in traditional sterile surgical fashion. The wound was explored. Cultures were obtained. Two liters of saline irrigation was then used to thoroughly agitate and flush out the wound. The extensor tendons to the index and middle finger were transected, both ends were found. The ECRL tendon was also transected and its ends were identified as well. There was a small gash in the dorsal cortex of the capitate. The limb was exsanguinated with a gentle Farhat wrap and then a highly placed well-padded axillary tourniquet was inflated to 200 mmHg for a total of 43 minutes. Devitalized tissue was debrided. A curette was used to clean out the groove in the bone on the dorsal aspect of the capitate down to clean healthy tissue. There was no instability noted at all. Full thorough irrigation was performed again. Devitalized tendon was debrided but kept to an absolute minimum. The ECRL tendon was then repaired in end-to-end fashion using 2-0 Prolene in a locking and nonlocking fashion. There was 1 cm of it remaining and its distal insertion and then this was later oversewn with a 2-0 Prolene in a [id number] fashion and then a far and wide 2-0 Ethilon for reinforcement. The EIP tendon was then repaired in end-to-end fashion in a modified locking nonlocking Smith manner with a 3-0 Prolene on tapered needles and then reinforced with another 3-0 Prolene in a [id number] fashion and then a far and wide 4-0 Mersilene. The EDC 2 and 3 tendons were then repaired in an end-to-end directly apposed fashion using 2-0 Prolene in a modified locking and nonlocking Smith fashion and were oversewn with another [id number] 2-0 Prolene and then a far and wide 4-0 Mersilene. There were no other anatomic abnormalities that I could identify. Thorough irrigation with another liters worth of saline was performed. The skin edges were debrided of devitalized tissue and then reapproximated using interrupted 4-0 chromic sutures. A small laceration on the dorsal aspect of the fifth finger was closed with a simple 4-0 chromic suture. The hand and arm were thoroughly cleansed and dried. Of note, the axillary tourniquet was released prior to the start of any closure and small areas of oozing were easily controlled with the bipolar electrocautery. Hand and arm were thoroughly cleansed and dried. Betadine Adaptic dressings were applied. 10 mL of a 50/50 mixture of 2% plain lidocaine and 0.5% plain Marcaine was infiltrated in skin and subcutaneous tissues for postoperative pain control. The hand and arm were wrapped in a dry sterile dressing and then a volar immobilizing splint keeping the wrist extended as well as the second, third and fourth fingers was made. Of note, passive range of motion examination after the tendon repairs revealed full active range of motion with only a little bit of tightness of the extensors. The muscle will have to stretch. Tenodesis was performed and was overall normal. The capillary refill is less than 2 seconds. All fingertips. The patient was awakened from anesthesia and transported to the Post Anesthesia Care Unit awake in stable condition at the end of the case. The sponge, needle, instrument counts were correct at the end of the case as reported by the nurses in the room. MD DANNI Lopez III/ /5:59 PM /6:00 PM
== END 2016-11-08 12:13 | disposition home or self-care (01) | DRG 513 ==
LOC: NEPA 11:54 → NEDA 12:42 → N06A 19:16
PROVIDERS: ADMIT Family Medicine; ATTEND Family Medicine
PROC: 0JDK0ZZ Extraction of Left Hand Subcutaneous Tissue and Fascia, Open Approach (ICD-10-PCS; 2016-11-06)
PROC: 0LS80ZZ Reposition Left Hand Tendon, Open Approach (ICD-10-PCS; 2016-11-06)
PROC: 0LM80ZZ Reattachment of Left Hand Tendon, Open Approach (ICD-10-PCS; principal; 2016-11-06 15:48)
DX: S66.323A Laceration of extensor muscle, fascia and tendon of left middle finger at wrist and hand level, initial encounter (principal); S62.132B Displaced fracture of capitate [os magnum] bone, left wrist, initial encounter for open fracture; S66.321A Laceration of extensor muscle, fascia and tendon of left index finger at wrist and hand level, initial encounter; J45.909 Unspecified asthma, uncomplicated; K59.00 Constipation, unspecified; F10.10 Alcohol abuse, uncomplicated; F14.90 Cocaine use, unspecified, uncomplicated; F17.210 Nicotine dependence, cigarettes, uncomplicated; W29.3XXA Contact with powered garden and outdoor hand tools and machinery, initial encounter; Y93.H2 Activity, gardening and landscaping; Z91.013 Allergy to seafood
CPT/HCPCS: 71010; 73110; 73130; 80048; 80170; 85025; 85610; 85730; 86850; 86900; 86901; 87015; 87070; 87102; 87116; 87205; 87206; 90714; 93005; 96374; 96375; J0690; J1580; J2175; J2270; J2405; J3010

== ENCOUNTER 2017-08-13 03:31 | Emergency (ER) | payer OTHER ==
[~2017-08-13] VITALS: Ht 190.5 cm; Wt 100.0 kg
[2017-08-13 03:34] VITALS: BP 159/98; PULSE 80; RESP 15; TEMP 98; O2SAT 97
[2017-08-13] MEDS ORDERED: KETOROLAC TROMETHAMINE 60 MG/2 ML (IM) VIAL IM ONE (04:00)
[2017-08-13] MEDS ORDERED: ORPHENADRINE INJ 60 MG/2 ML AMP IM ONE (04:00)
--- NOTE | 2017-08-13 04:08 | PD ---
HPI Chief Complaint: Fall Time Seen by Provider: 03:47 Travel History International Travel<30 days: No Contact w/Intl Traveler<30days: No Traveled to known affect area: No History of Present Illness HPI Patient is a 47-year-old male presenting to emergency department for evaluation after a trip and fall. Patient states he was carrying a basket of laundry when he tripped over another laundry basket subsequently hitting his head on a coffee table. There was no loss of consciousness. Patient reports a dull headache. But denies any nausea or vomiting. He also reports left neck pain. The injury occurred at approximately 7 PM on 08/12/17. He took Acetaminophen approximately 1 hour prior to arrival in the emergency department this morning, patient states that he still has a headache, his pain is a 4 out of 10. He denies any eye pain or visual changes. PFSH Past Medical History Asthma: Yes Heart Rhythm Problems: No Cardiac Catheterization: No Cardiovascular Problems: No High Cholesterol: No Chest Pain: Yes Congestive Heart Failure: No Diabetes: No Pneumonia: Yes Past Surgical History Coronary Artery Bypass Graft: No Social History Alcohol Use: Yes (daily beer) Tobacco Use: Yes (10/26 ppd ) Substance Use: Yes (COCAINE 11/05 NOW DENIES) Allergies-Medications (Allergen,Severity, Reaction): Coded Allergies: shrimp (Unverified Allergy, Severe, 08/13/17) swelling Reported Meds & Prescriptions Reported Meds & Active Scripts Active No Active Prescriptions or Reported Medications Review of Systems Except as stated in HPI: all other systems reviewed are Neg HENT: Positive: Headaches, Neck Stiffness Skin: Positive Other (superficial laceration) Physical Exam Narrative GENERAL: Well-developed, well-nourished, alert male. Resting in no acute distress. SKIN: Warm and dry. Superficial Laceration to the right forehead and right cheek HEAD: Atraumatic. Normocephalic. EYES: Pupils equal and round. No scleral icterus. No injection or drainage. ENT: No nasal bleeding or discharge. Mucous membranes pink and moist. NECK: Trachea midline. No JVD. Tenderness to palpation paraspinal musculature in the cervical region on the left side. No spinal tenderness or step-off noted. Full range of motion with flexion, extension and rotation of neck. CARDIOVASCULAR: Regular rate and rhythm. RESPIRATORY: No accessory muscle use. Clear to auscultation. Breath sounds equal bilaterally. GASTROINTESTINAL: Abdomen soft, non-tender, nondistended. Hepatic and splenic margins not palpable. MUSCULOSKELETAL: Extremities without clubbing, cyanosis, or edema. No obvious deformities. NEUROLOGICAL: Awake and alert. No obvious cranial nerve deficits. Motor grossly within normal limits. Five out of 5 muscle strength in the arms and legs. Normal speech. PSYCHIATRIC: Appropriate mood and affect; insight and judgment normal. Data Data Last Documented VS Vital Signs Date Time Temp Pulse Resp B/P (MAP) Pulse Ox O2 Delivery O2 Flow Rate FiO2 08/13/17 03:34 98.0 80 15 159/98 (118) 97 Room Air Orders Orders Ketorolac Inj (Toradol Inj) (08/13/17 04:00) Orphenadrine Inj (Norflex Inj) (08/13/17 04:00) Spine, Cervical - Ltd (Ap&Lat) (08/13/17 ) Tetanus/Diphtheria Tox Adult (Tetanus/Di (08/13/17 04:15) MDM Medical Decision Making Medical Screen Exam Complete: Yes Emergency Medical Condition: Yes Interpretation(s) Vital Signs Date Time Temp Pulse Resp B/P (MAP) Pulse Ox O2 Delivery O2 Flow Rate FiO2 08/13/17 03:34 98.0 80 15 159/98 (118) 97 Room Air Differential Diagnosis Contusion versus concussion versus sprain versus strain versus laceration versus abrasion versus other Narrative Course Patient presented for evaluation after trip and fall occurred several hours prior to arrival. Patient is neurologically intact with no focal deficits. The abrasion to his face and cheek are superficial in nature. Wound care was performed at home per patient's report. Patient was given Toradol and Norflex for pain. Cervical spine x-ray ordered. X-ray of the cervical spine which was read by the radiologist shows no acute fracture. 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 Patient was encouraged to apply warm heat to affected area, continue gentle range of motion exercises, avoid exacerbating activities. He was encouraged to take medications as needed and as directed for pain. He was encouraged to return to emergency department for any new or worsening symptoms. Patient verbalized understanding of instructions. Patient stable for discharge. Diagnosis Primary Impression: Fall Qualified Codes: W19.XXXA - Unspecified fall, initial encounter Additional Impressions: Abrasion of head Qualified Codes: S00.91XA - Abrasion of unspecified part of head, initial encounter Neck muscle strain Qualified Codes: S16.1XXA - Strain of muscle, fascia and tendon at neck level , initial encounter Referrals: Primary Care Physician Patient Instructions: Acute Neck Pain (ED), General Instructions, Head Injury ( ED), Muscle Strain (ED) Additional Instructions: Take medication as needed and as directed for pain Follow-up with your primary doctor Return to emergency department for any new or worsening symptoms Apply warm moist heat to affected area, continue range of motion exercises, avoid exacerbating activities Med/Other Pt SpecificInfo: Prescription(s) given Scripts Cyclobenzaprine (Flexeril) 10 Mg Tab 10 MG PO TID Y for MUSCLE SPASM, #30 TAB 0 Refills Prov: Luh Phillips 08/13/17 Ibuprofen (Ibuprofen) 800 Mg Tab 800 MG PO Q8H Y for Pain/Inflammation, #60 TAB 0 Refills Prov: Luh Phillips 08/13/17 Disposition: 01 DISCHARGE HOME Condition: Stable Luh Phillips Aug 13, 2017 04:08
[2017-08-13] MEDS ORDERED: TETANUS/DIPHTHERIA TOXOID ADULT 0.5 ML VIAL IM ONE (04:15)
--- NOTE | 2017-08-13 04:40 | RADRPT ---
EXAM DATE/TIME: 08/13/2017 04:01 [facility] COMPARISON: No previous studies available for comparison. INDICATIONS : Pain due to fall. MEDICAL HISTORY : None. SURGICAL HISTORY : ENCOUNTER: Initial ACUITY: 1 day PAIN SCORE: 7/10 LOCATION: cervical spine, left FINDINGS: Two projection examination was performed. There is normal alignment and curvature of the vertebral b odies down to the level of C7. There is congenital fusion of the C5 and C6 vertebral bodies. No evide nce of fracture or subluxation. Vertebral body height is maintained. The disc spaces are maintained . The prevertebral soft tissues are of normal thickness. The atlanto-axial articulation is intact. CONCLUSION: 1. 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 2. No acute fracture or malalignment. Marco Martinez MD on August 13, 2017 at 4:37 Board Certified Radiologist. This report was verified electronically.
[2017-08-13] MEDS ORDERED: CYCL1TAB29 PO (04:48)
[2017-08-13] MEDS ORDERED: IBUP800T23 PO (04:48)
== END 2017-08-13 05:57 | disposition home or self-care (01) ==
LOC: NEPD 03:31
DX: S00.81XA Abrasion of other part of head, initial encounter (principal); S16.1XXA Strain of muscle, fascia and tendon at neck level, initial encounter; F17.200 Nicotine dependence, unspecified, uncomplicated; Z23 Encounter for immunization; Z87.09 Personal history of other diseases of the respiratory system; W01.190A Fall on same level from slipping, tripping and stumbling with subsequent striking against furniture, initial encounter; Y93.E2 Activity, laundry
CPT/HCPCS: 72040; 90471; 90714; 96372; 99284; J1885; J2360

== ENCOUNTER 2018-01-29 04:32 | Emergency (ER) | payer OTHER ==
[~2018-01-29] VITALS: Ht 190.5 cm; Wt 98.0 kg
[~2018-01-29 04:32] MED LIST: CYCL10TA PO; IBUP1TAB7 PO
[2018-01-29 04:33] VITALS: BP 151/96; PULSE 86; RESP 18; TEMP 97.4; O2SAT 100
[2018-01-29] MEDS ORDERED: DICL75TA PO (05:16)
[2018-01-29] MEDS ORDERED: ROBA500T PO (05:16)
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
== END 2018-01-29 05:40 | disposition home or self-care (01) ==
LOC: NEPD 04:32
DX: S30.0XXA Contusion of lower back and pelvis, initial encounter (principal); V00.131A Fall from skateboard, initial encounter; J45.909 Unspecified asthma, uncomplicated; F17.210 Nicotine dependence, cigarettes, uncomplicated
CPT/HCPCS: 99283

== ENCOUNTER 2018-04-14 23:07 | Emergency (ER) | payer OTHER ==
[~2018-04-14] VITALS: Ht 190.5 cm; Wt 95.0 kg
[~2018-04-14 23:07] MED LIST changes: +DICL75TA PO; +ROBA500T PO
[2018-04-14 23:10] VITALS: BP 136/84; PULSE 89; RESP 22; TEMP 97.3; O2SAT 95
[2018-04-15] MEDS ORDERED: RESP: ALBUTEROL 2.5 MG/IPRATROPIUM 0.5 MG NEB (SCH) NEB ONE (00:30)
--- NOTE | 2018-04-15 01:00 | PD ---
HPI Chief Complaint: Abdominal Pain Time Seen by Provider: 00:20 Travel History International Travel<30 days: No Contact w/Intl Traveler<30days: No Traveled to known affect area: No History of Present Illness HPI Is a 48-year-old man presents to the emergency department complaining of right- sided rib pain. He was on the porch when he missed a step on the stairs and fell and landed on his right side. Patient is very sleepy, has been drinking beer today, is unable to provide much meaningful history. Is difficult to arouse. History is obtained from the family member with them. Denies any other complaints. History Past Medical History Narrative Medical Blood in his back Asthma Social History Alcohol Use: Yes Tobacco Use: Yes (10/26 ppd ) Allergies-Medications (Allergen,Severity, Reaction): Coded Allergies: shrimp (Unverified Allergy, Severe, 04/14/18) swelling Reported Meds & Prescriptions Reported Meds & Active Scripts Active Robaxin (Methocarbamol) 500 Mg Tab 500 Mg PO QID [address] (Diclofenac Sodium) 75 Mg Tabdr 75 Mg PO BID Flexeril (Cyclobenzaprine HCl) 10 Mg Tab 10 Mg PO TID PRN Ibuprofen 800 Mg Tab 800 Mg PO Q8H PRN Review of Systems Except as stated in HPI: all other systems reviewed are Neg Physical Exam Narrative GENERAL: Well-appearing 40-year-old man, no acute distress. Somnolent, difficult to arouse. SKIN: Focused skin assessment warm/dry. HEAD: Normocephalic. No evidence of trauma. NECK: Trachea midline. No JVD. Chest wall: Pain and tenderness to palpation of the right side of the chest wall. No definite bruising. CARDIOVASCULAR: Regular rate and rhythm. No murmur appreciated. RESPIRATORY: No accessory muscle use. Clear to auscultation. Breath sounds equal bilaterally. GASTROINTESTINAL: Abdomen soft, non-tender, nondistended. Hepatic and splenic margins not palpable. MUSCULOSKELETAL: No obvious deformities. No edema. NEUROLOGICAL: Somnolent but arousable. Able to talk and give history. Moves all extremities. Data Data Last Documented VS Vital Signs Date Time Temp Pulse Resp B/P (MAP) Pulse Ox O2 Delivery O2 Flow Rate FiO2 04/14/18 23:10 97.3 89 22 136/84 (101) 95 Orders Orders Albuterol-Ipratropium Neb (Duoneb Neb) (04/15/18 00:30) Ribs, Uni (W/Exp Cxr-Min 3vw) (04/15/18 ) [facility] Medical Decision Making Medical Screen Exam Complete: Yes Emergency Medical Condition: Yes Interpretation(s) Rib x-ray: Subtle fractures ninth and 10th ribs. Differential Diagnosis Rib fracture, pneumothorax, contusion, belly injury, occult head injury, intoxication, other Narrative Course Medical decision making 40-year-old man presents emergency department, apparently intoxicated, complaining of right rib pain after a fall. He is somnolent, but I think this is not related to a head injury. Will monitor him. No external signs of trauma. Complains of right rib pain where he fell. Will check rib series. Reassess. Diagnosis Primary Impression: Rib fractures Patient Instructions: General Instructions Additional Instructions: Take naproxen as needed for pain. Use incentive spirometer several times daily to encourage good deep breathing. Follow-up with her primary doctor in 2-3 days. Return to the emergency department for any new or worsening symptoms. Med/Other Pt SpecificInfo: Prescription(s) given Scripts Naproxen (Naproxen) 500 Mg Tab 500 MG PO BID for 10 Days, #20 TAB 0 Refills Prov: Lorenzo Gutiérrez MD 04/15/18 Disposition: 01 DISCHARGE HOME Condition: Stable Lorenzo Gutiérrez MD Apr 15, 2018 01:00
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
[2018-04-15] MEDS ORDERED: NAPR500T2 PO (01:52)
== END 2018-04-15 02:07 | disposition home or self-care (01) ==
LOC: NEPC 23:07
DX: S22.41XA Multiple fractures of ribs, right side, initial encounter for closed fracture (principal); W10.9XXA Fall (on) (from) unspecified stairs and steps, initial encounter; J45.909 Unspecified asthma, uncomplicated; F17.210 Nicotine dependence, cigarettes, uncomplicated; Z72.89 Other problems related to lifestyle; Z79.899 Other long term (current) drug therapy
CPT/HCPCS: 71101; 94150; 94664; 99283